=== PATIENT | female | born 2000 | race Caucasian/White ===

== ENCOUNTER 2024-11-10 11:09 | Emergency (ER) | payer OTHER, SELFPAY | END 2024-11-10 14:00 | disposition left against medical advice (07) | PROVIDERS: Emergency Provider Emergency Medicine | DX: R19.7 Diarrhea, unspecified (principal); R11.10 Vomiting, unspecified; Z53.21 Procedure and treatment not carried out due to patient leaving prior to being seen by health care provider ==

== ENCOUNTER 2025-02-23 13:41 | Outpatient (AMB) | payer OTHER, SELFPAY ==
--- NOTE | 2025-02-23 13:58 | MHC.PC.OV ---
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 Patient was seen at [facility] last Thursday for a 2nd degree sunburn. Patient need a note to say she is cleared to go back to work. Allergies Fruits with pits Allergy (Uncoded 02/23/25 14:01) Anaphylaxis Medication List - Last Reconciled 02/24/25 by GERMAN Wilson cyclobenzaprine 5 mg PO BEDTIME PRN epinephrine IM PRN hydroxyzine HCl 25 mg PO BEDTIME PRN ibuprofen-diphenhydramine cit 200-38 mg (Advil PM) 2 caps PO BEDTIME Tobacco use date assessed: 02/23/25 Dental Screening Dental Screen Date: 02/23/25 Did you have a dental visit in the last 12 months?: No Did you have a dental problem in the last 6 months where you did not have access to dental care?: No Was dental information given to patient?: Yes HPI HPI Comments History of Present Illness Details This is a 24-year-old female with a past medical history of anaphylaxis and obesity presenting to establish care. She would like a physical exam. The patient took a trip to [place], and she was in the sun, and she did not reply sunscreen. She developed a blistering sunburn on her chest and arms and neck on 02/13/2025. She had bandages placed on her an urgent care in [place]. She returned to [facility] in went to [facility] where they removed the bandages. The skin opened up. She was placed on oral antibiotics, naproxen and oxycodone. She is still taking Keflex and has a few days left. She is no longer on pain meds. She is doing much better. Her skin is very dry and the sunburn is peeling, but the wounds have significantly improved. No fevers or chills. The pain has pretty much subsided, and she needs a note to clear her to return to work next week. 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 She is applying emollients to her skin. She endorses back pain since she was an adolescent. She was seen at [facility] years ago in Pediatrics. Since 2019 her back pain has been worsening. It occurs with sitting, standing and lying down. It is across her entire lower back and radiates down the entire right leg associated with tingling which comes and goes. No history of back injuries. She tried the chiropractor for a month and water therapy. She has not had recent imaging. Endorses muscle spasms. She is up-to-date with flu, COVID and Tdap vaccine for her job. Patient needs referral to Gynecology. She has an IUD, and she is unsure if it is due to be changed. Patient says last year she ate a plum and a peach and developed throat swelling and difficulty breathing. She has been told to avoid all pitted fruits, and she needs to see Allergy and immunology because she did not have insurance last year for a referral. She carries an EpiPen and Benadryl. Endorses mild seasonal allergies. Since that time she has had peach juice and drinks with plum juice in them, and she has not had a reaction. She also endorses difficulty with sleep. She avoids caffeine. She does not watch TV before bedtime. She tries to use white noise and meditation apps. She has exhausted [id number]-[id number] sleep aids. She does have a history of anxiety. ROS: Constitutional: No unexplained weight loss, fever, chills, fatigue or night sweats. Eyes: No vision changes, blurry vision, double vision, eye pain, eye redness, eye discharge. ENT: No hearing loss, sneezing, congestion, runny nose or sore throat. Respiratory: No shortness of breath, cough or sputum production. Cardiovascular: No chest pain, chest pressure or chest discomfort. No palpitations or pedal edema. Gastrointestinal: No anorexia, nausea, vomiting or diarrhea. No abdominal pain or blood in stool. Genitourinary: No dysuria, hematuria, urinary frequency. Neurologic: No headache, dizziness, syncope, unilateral weakness, ataxia, numbness or tingling in the extremities. Musculoskeletal: See HPI Hematologic/Lymphatics: No bleeding or bruising. No painful lymph nodes. Skin: see HPI Endocrine: No cold or heat intolerance. No polyuria or polydipsia. Psychiatric: No depression. No SI/HI. Physical exam: Constitutional: Alert, in no distress. Head: Normocephalic. Eyes: Pupils are equal, round and reactive to light. Extraocular muscles intact. Ear, Nose and Throat: Canals clear. TMs normal. Normal nasal mucosa. No nasal discharge. No oral lesions. Neck: Supple, Full range of motion. No lymphadenopathy. No palpable thyroid masses. Respiratory: Clear to auscultation. Cardiovascular: S1 S2 regular. No murmurs. Gastrointestinal: Abdomen soft, non-tender, non-distended. Normal bowel sounds. No palpable masses. Neurologic: No focal neurological deficits. Symmetric patellar reflexes. Moves all extremities spontaneously. Sensation intact bilaterally. No footdrop. Normal gait. Skin: Desquamation of the skin on the upper arms and chest. There are healing scabs on the chest bilaterally. There is no warmth, edema, weeping. Musculoskeletal: No gross deformities. Normal range of motion. Patient has back pain with left straight leg raise. No midline spinal tenderness. Full range of motion of the spine. Extremities: Warm and well perfused. No clubbing, cyanosis or edema. 3+ peripheral pulses bilaterally. 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 Routine physical examination Screening for cardiovascular condition Low back pain radiating to right leg Family History (Updated 02/23/25 @ 14:08 by Trixie Sloan MA) Maternal Grandfather Hypertension Diabetes Maternal Grandmother Hypertension Hyperlipemia Mother Thyroid disease Father Alcoholism FHx: mental illness Substance abuse Paternal Uncle FHx: mental illness Social History (Updated 02/23/25 @ 14:09 by Trixie Sloan MA) Housing: Apartment Alcohol intake: current Patient Tobacco Use Status: Never used Tobacco e-Cigarette/Vaping Use: Never Used Second Hand Smoke Exposure: No Substance Use Type: Marijuana service: No Current occupational status: employed Current occupation: [employer] Current occupational exposures/hazards: No Cognitive needs: No Hearing needs: No Vision needs: No Questionnaire PHQ-9 Over the last 2 weeks, how often have you been bothered by any of the following problems? 1. Little interest or pleasure in doing things: several days 2. Feeling down, depressed, or hopeless: several days 3. Trouble falling or staying asleep, or sleeping too much: nearly every day 4. Feeling tired or having little energy: several days 5. Poor appetite or overeating: not at all 6. Feeling bad about yourself - or that you are a failure or have let yourself or your family down: several days 7. Trouble concentrating on things, such as reading the newspaper or watching television: not at all 8. Moving or speaking so slowly that other people could have noticed. Or the opposite - being so fidgety or restless that you have been moving around a lot more than usual: not at all 9. Thoughts that you would be better off or of hurting yourself in some way: not at all Total score: 7 Depression Screening Interpretation: Positive Depression Screening Follow-up: Other (see hpi) Depression Screening Done: Yes 71665 - PHQ-9 Billing: Patient declined-do not bill Source: Developed by Drs. Cal Lopez, Pat Ruff, Ryan Watson and colleagues, with an educational leora from [employer]. Thrive Questionnaire Date Thrive assessed: 02/23/25 I am a: Patient What is your living situation today?: I have a steady place to live Within the past 12 months, did the food you bought not last and you didn't have the money to get more?: Never true Within the past 12 months, did you worry whether your food would run out before you got money to buy more?: Never true Do you have trouble paying for medicines?: No Do you have trouble getting transportation to medical appointments?: No Do you have trouble paying your heating and electricity bill?: No Do you have trouble taking care of your child, family member or friend?: No Do you have trouble with day-to-day activities such as bathing, preparing meals, shopping, managing finances, etc.?: No Are you currently unemployed and looking for a job?: No Are you interested in more education?: Yes Please select the resources that you would like help with: Education Currently or been in a relationship where the following occur: No concerns reported THRIVE Score: 0 AUDIT C Alcohol Use Questionnaire (AUDIT-C) 1. How often do you have a drink containing alcohol?: Never Total Score: 0 Score Reviewed/Action Taken: No TAURUS-7 AMB Questionnaire TAURUS-7 Date TAURUS - 7 assessed: 02/23/25 Feeling nervous, anxious, or on edge: 1 = Several days Not being able to stop or control worryin = More than half the days Worrying too much about different things: 2 = More than half the days Trouble relaxin = More than half the days Being so restless that it is hard to sit still: 1 = Several days Becoming easily annoyed or irritable: 2 = More than half the days Feeling afraid as if something awful might happen: 2 = More than half the days Total TAURUS-7 score (0-4 normal; 5-9 mild; 10-14 moderate; 15-21 severe): 12 Source: Developed by Drs. Cal Lopez, Pat Ruff, Ryan Watson and colleagues, with an educational leora from [employer]. TAURUS-7 Assessment Billing TAURUS-7 Assessment Tool: TAURUS-7 Assessment 04838 Physical exam (Primary Care) Vital Signs: Last Vital Signs Temp 97.8 F 02/23/25 14:09 Pulse 94 02/23/25 14:09 BP 100/68 02/23/25 14:09 Pulse Ox 98 02/23/25 14:09 Oxygen Delivery Method Room Air 02/23/25 14:09 BMI result Body Mass Index 42.2 Tobacco/Smoking Status: Tobacco use Status Tobacco use date assessed 02/23/25 02/23/25 14:14 Patient Tobacco Use Status Never used Tobacco 02/23/25 14:14 e-Cigarette/Vaping Use Never Used 02/23/25 14:14 PHQ-9: PHQ-9 Score PHQ-9: Total score 7 02/23/25 14:29 Depression Screening Interpretation: Positive Depression Screening Follow-up: Other (see hpi) Thrive Assessment: Date of Thrive Assessment Date Thrive assessed 02/23/25 02/23/25 14:00 Currently or been in a relationship where the following occur: No concerns reported Coding Level of Care Code New Pt Level 3 (52388) New Pt Prev Care 18-39yr(15505 Diagnoses Screening for cardiovascular condition Z13.6 Low back pain radiating to right leg M54.50; M79.604 Routine physical examination Z00.00 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 Plan to refer to physical therapy pending results. She will follow up in 8 weeks. If physical therapy does not help we will discuss advanced imaging and referral to physiatry. She can take zcxj-eum-hgxdqcr ibuprofen 600 mg every 6 hours as needed for pain or acetaminophen 500 to a 1000 mg every 8 hours as needed for pain. Trial of cyclobenzaprine 5 mg as needed at bedtime for muscle spasm. Do not drive or operate heavy machinery when taking this medication because it causes sedation and drowsiness. (3) Routine physical examination: Code(s): Z00.00 - Encounter for general adult medical examination without abnormal findings Category: Medical Plan: Patient is seen today for a routine physical. As part of this visit we reviewed the following issues, which are considered and essential part of preventative health in this age group: - Annual Supervisor Framing Mill exam - Blood pressure screening - Cholesterol screening - Osteoporosis prevention including calcium/vitamin D intake, weight bearing exercise & smoking cessation - Nutritional and exercise counseling - Counseling of injury prevention including fire prevention, smoke alarms and seat belt usage - Screening for depression - Prevention of and/or testing for infectious diseases - Education about skin cancer - Recommendations about immunizations - Recommendation of an eye exam - Screening for substance abuse (4) Anaphylaxis due to food: Code(s): T78.00XA - Anaphylactic reaction due to unspecified food, initial encounter Category: Medical Plan: Continue strict avoidance of pitted fruits. Suspect oral allergy syndrome versus true IgE mediated allergy since she can have the processed forms. Reviewed EpiPen instructions. She also carries Benadryl. Referred to Allergy and immunology. (5) Insomnia: Code(s): G47.00 - Insomnia, unspecified Category: Medical Plan: Sleep hygiene reviewed. Trial of hydroxyzine 25 mg at bedtime as needed. (6) Sunburn of second degree: Code(s): L55.1 - Sunburn of second degree Category: Medical Plan: Continue to apply daily emollient. Sunburn prevention reviewed. Note provided to return to work. Plan Follow up in 8 weeks. Orders: Orders XR lumbar spine 2-3V 02/23/25 M54.50 - Low back pain, unspecified, M79.604 - Pain in right leg Syphilis Screen 02/23/25 M54.50 - Low back pain, unspecified, M79.604 - Pain in right leg, Z00.00 - Encounter for general adult medical examination without abnormal findings, Z13.6 - Encounter for screening for cardiovascular disorders, Z20.2 - Contact with and (suspected) exposure to infections with a predominantly sexual mode of transmission CT NG by PCR 02/23/25 M54.50 - Low back pain, unspecified, M79.604 - Pain in right leg, Z00.00 - Encounter for general adult medical examination without abnormal findings, Z13.6 - Encounter for screening for cardiovascular disorders, Z20.2 - Contact with and (suspected) exposure to infections with a predominantly sexual mode of transmission Hepatitis C Antibody 02/23/25 M54.50 - Low back pain, unspecified, M79.604 - Pain in right leg, Z00.00 - Encounter for general adult medical examination without abnormal findings, Z13.6 - Encounter for screening for cardiovascular disorders, Z20.2 - Contact with and (suspected) exposure to infections with a predominantly sexual mode of transmission TSH reflex Free T4 02/23/25 M54.50 - Low back pain, unspecified, M79.604 - Pain in right leg, Z00.00 - Encounter for general adult medical examination without abnormal findings, Z13.6 - Encounter for screening for cardiovascular disorders Complete Blood Count no Diff 02/23/25 M54.50 - Low back pain, unspecified, M79.604 - Pain in right leg, Z00.00 - Encounter for general adult medical examination without abnormal findings, Z13.6 - Encounter for screening for cardiovascular disorders PT Evaluation and Treatment 02/23/25 M54.50 - Low back pain, unspecified, M79.604 - Pain in right leg HIV Ab/Ag 02/23/25 M54.50 - Low back pain, unspecified, M79.604 - Pain in right leg, Z00.00 - Encounter for general adult medical examination without abnormal findings, Z13.6 - Encounter for screening for cardiovascular disorders, Z20.2 - Contact with and (suspected) exposure to infections with a predominantly sexual mode of transmission Lipid Panel 02/23/25 E78.5 - Hyperlipidemia, unspecified, M54.50 - Low back pain, unspecified, M79.604 - Pain in right leg, Z00.00 - Encounter for general adult medical examination without abnormal findings, Z13.6 - Encounter for screening for cardiovascular disorders Comprehensive Met. 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
[2025-02-23 14:09] VITALS: BP 100/68; PULSE 94; TEMP 36.6; O2SAT 98; BMI 42.2
--- OUTSIDE RECORDS SUMMARY | 2025-02-23 14:41 | XMS_ITS | Clinical Summary ---
Author Organization [facility] Address [address] [place] [address] Phone Care Team Providers Care Distributed Energy Systems Consultant Name Role Phone Ann Mosley MD Primary Care Provider Allergies Active Allergy Reactions Criticality Noted Date Comments [place] Anaphylaxis High 10/11/2024 [place] Anaphylaxis High 10/11/2024 Medications ondansetron ODT (ZOFRAN-ODT) 4 mg disintegrating tablet Let 1 tablet dissolve under the tongue three times daily as needed for nausea or vomiting. 10 tablet 4 Active naproxen (NAPROSYN) 500 mg tablet Take 1 tablet (500 mg total) by mouth 2 (two) times a day with meals for 15 days. 30 tablet 5 03/01/20 25 Active cephalexin (KEFLEX) 500 mg capsule Take 1 capsule (500 mg total) by mouth 3 (three) times a day for 10 days. 30 each 5 02/25/20 25 Active oxyCODONE (ROXICODONE) 5 mg immediate release tablet Take 1 tablet (5 mg total) by mouth at bedtime for 5 doses. Max Daily Amount: 5 mg 5 tablet 5 02/20/20 25 Encounters Date Type Department Care Team Description 02/14/2025 10:27 AM EDT - 02/14/2025 11:50 AM EDT Emergency [facility] Emergency [address] [place] [address] Sunburn (Primary Dx) Discharge Disposition: Home or Self Care from Last 3 Months Medical History Medical History Date Comments Anxiety Migraines Social History Tobacco Use Types Packs/Day Years Used Date Smoking Tobacco: Never Assessed Comments Unknown Sex and Gender Information Value Date Recorded Sex Assigned at Female 02/14/2025 10:36 AM EDT Legal Sex Female 10:11 AM EST Gender Identity Female 02/14/2025 10:36 AM EDT Sexual Orientation Straight 02/14/2025 10 :36 AM EDT Travel History Travel Start Travel End [place] 02/09/2025 02/13/2025 Obstetrics History Last Filed Vital Signs Vital Sign Reading Time Taken Comments Blood Pressure 122/95 02/14/2025 9:30 AM EDT Pulse 109 02/14/2025 9:30 AM EDT Temperature 36 ??C (96.8 ??F) 02/14/2025 9:30 AM EDT Respiratory Rate 20 02/14/2025 9:30 AM EDT Oxygen Saturation 98% 02/14/2025 9:30 AM EDT Inhaled Oxygen Concentration - - Weight 90.7 kg (200 lb) 02/14/2025 9:30 AM EDT Height 152.4 cm (5') 02/14/2025 9:30 AM EDT Body Mass Index 39.06 02/14/2025 9:30 AM EDT Plan of Treatment Health Maintenance Due Date Last Done Comments Gonorrhea/Chlamydia Screening 2001 Meningococcal B Vaccine (2 of 2 - [place] SCDM 2-dose series) 10/11/2019 04/11/2019 Depression Screening 09/16/2022 HIV Screening 09/16/2022 Hepatitis C Screening 09/16/2022 Social Influencers of Health Screening 09/16/2022 Cervical Cancer Screening: Pap Smear 2022 COVID-19 Vaccine ( season) 2024 11/05/2021, 03/07/2021, 02/07/2021 DTaP,Tdap,and Td Vaccines (9 - Td or Tdap) 01/02/2035 01/02/2025, 04/11/2019, 10/14/2013, Additional history exists HIB Vaccines Completed 01/04/2003, 06/20, 05/13/2002, Additional history exists Pneumococcal Vaccine: Pediatrics (0 to 5 Years) and At-Risk Patients (6 to 64 Years) Completed 01/04/2003, 07/15/2002, 05/13/2002, Additional history exists IPV Vaccines Completed 01/27/2006, 03/19, 05/13/2002, Additional history exists Varicella Vaccines Completed 02/23/2008, 01/04/2003 HPV Vaccines Completed 07/12/2015, 10/14/2013 Hepatitis A Vaccines Completed 07/12/2015, 10/14/20 Meningococcal ACWY Vaccine Completed 04/11/2019, Influenza Vaccine Completed 08/01/2024, , 08/08/2021, Additional history exists Hepatitis B Vaccines Completed 01/09/2025, 07/15/2002, 02/15/2002, Additional history exists MMR Vaccines Completed 01/29/2025, 12/17, 01/27/2006, Additional history exists RSV Immunization Patients Under 20 months Aged Out No longer eligible based on patient's age to complete this topic Insurance [facility] [employer] Care Teams Distributed Energy Systems Consultant Relationship Specialty Start Date End Date Ann Mosley MD [address] [place] [id number] PCP - General Pediatrics 02/14/25
== END 2025-02-23 14:50 | disposition home or self-care (01) ==
LOC: HO.HMCFM 13:42
PROVIDERS: Visit Provider Physician Assistant Medical
DX: Z00.00 Encounter for general adult medical examination without abnormal findings (principal); M54.50 Low back pain, unspecified; M79.604 Pain in right leg; Z13.6 Encounter for screening for cardiovascular disorders; T78.00XA Anaphylactic reaction due to unspecified food, initial encounter; G47.00 Insomnia, unspecified; L55.1 Sunburn of second degree

== ENCOUNTER → 2025-02-23 13:41 | Outpatient (BNVA) | payer OTHER, SELFPAY | PROVIDERS: Visit Provider Physician Assistant Medical | DX: Z00.00 Encounter for general adult medical examination without abnormal findings (principal); E66.9 Obesity, unspecified; M54.50 Low back pain, unspecified; M79.604 Pain in right leg; G47.00 Insomnia, unspecified; L55.1 Sunburn of second degree; T78.00XA Anaphylactic reaction due to unspecified food, initial encounter; X58.XXXA Exposure to other specified factors, initial encounter; Y93.9 Activity, unspecified; Y92.9 Unspecified place or not applicable; Y99.9 Unspecified external cause status; Z68.41 Body mass index [BMI] 40.0-44.9, adult | CPT/HCPCS: 96127; 99202; 99385 ==

== ENCOUNTER 2025-04-17 11:36 | Outpatient (REF) | payer OTHER, SELFPAY ==
--- NOTE | ~2025-04-17 | XR_ITS ---
EXAMINATION: XR LUMBOSACRAL SPINE CLINICAL INFORMATION: M54.50 - Low back pain, unspecified COMPARISON: None available. TECHNIQUE: AP and lateral views FINDINGS: No acute cortical disruption or malalignment. No lytic or blastic lesions. Rudimentary ribs at T12. XR/XR lumbar spine 2-3V IMPRESSION: No acute fracture or listhesis. Negative x-ray. Electronically signed by: Francesco Liz MD 04/17/2025 12:42 PM EDT
[2025-04-17 12:21] LABS: Hematocrit 38.5 % (37.0-47.0); Hemoglobin 12.9 g/dl (12.0-16.0); Mean Corpuscular HGB Conc 33.5 g/dl (31.0-35.0); Mean Corpuscular Hemoglobin 29.1 pg (27.0-33.0); Mean Corpuscular Volume 86.9 fL (80.0-98.0); Mean Platelet Volume 9.7 fL (9.4-12.3); Platelet Count 224 X10*3/uL (160-400); Red Blood Count 4.43 X10*6/uL (4.20-5.50); Red Cell Distribution Width 12.2 % (11.0-16.0); White Blood Count 4.9 X10*3/uL (4.8-10.8)
--- OUTSIDE RECORDS SUMMARY | 2025-04-17 12:29 | XMS_ITS | Clinical Summary ---
Author Organization [facility] Address [address] [place] [address] Phone Care Team Providers Care Cut Out Stitcher Name Role Phone Ann Mosley MD Primary Care Provider Allergies Active Allergy Reactions Criticality Noted Date Comments [place] Anaphylaxis High 10/11/2024 [place] Anaphylaxis High 10/11/2024 Medications ondansetron ODT (ZOFRAN-ODT) 4 mg disintegrating tablet Let 1 tablet dissolve under the tongue three times daily as needed for nausea or vomiting. 10 tablet Active Encounters Date Type Department Care Team Description 02/14/2025 10:27 AM EDT - 02/14/2025 11:[address] [facility] Emergency [address] [place] [id number] Sunburn (Primary Dx) Discharge Disposition: Home [...] Orientation Straight 02/14/2025 10 :36 AM EDT Obstetrics History Last Filed Vital Signs Vital Sign Reading Time Taken Comments Blood Pressure 122/95 02/14/2025 9:30 AM EDT Pulse 109 02/14/2025 9:30 AM EDT Temperature 36 C (96.8 F) 02/14/2025 9:30 AM EDT Respiratory Rate 20 [...] 10/14/2013 Hepatitis A Vaccines Completed 07/12/2015, 10/14/20 13 Meningococcal ACWY Vaccine Completed 04/11/2019, Influenza Vaccine Completed 08/01/2024, , 08/08/2021, Additional history exists Hepatitis B Vaccines Completed 01/09/2025, 07/15/2002, 02/15/2002, Additional history exists MMR Vaccines Completed 01/29/2025, 12/17, 01/27/2006, Additional history exists RSV Immunization Patients Under 20 months Aged Out No longer eligible based on patient's age to complete this topic Insurance [facility] Care Teams Cut Out Stitcher Relationship Specialty Start Date End Date Ann Mosley MD [address] [place] [address] PCP - General Pediatrics 02/14/25
[2025-04-17 12:55] LABS: Alanine Aminotransferase 48 U/L (0-31); Albumin Level 4.1 g/dL (3.5-5.0); Alkaline Phosphatase 72 U/L (39-117); Anion Gap 11 (12-20); Aspartate Amino Transferase 39 U/L (5-31); Bilirubin Total 0.3 mg/dL (0.0-1.0); Blood Urea Nitrogen 9 mg/dL (9-16); Calcium 8.9 mg/dL (8.4-10.2); Carbon Dioxide 25 mmol/L (22-29); Chloride 107 mmol/L (96-108); Cholesterol 163 mg/dL (<200); Estimated Glomerular Filt Rate > 60; Glucose Random 87 mg/dL (60-115); HDL Cholesterol 34 mg/dL (>40); LDL Cholesterol Calculated 103 mg/dL (<100); Potassium 4.2 mmol/L (3.3-5.1); Sodium 139 mmol/L (135-145); Total Protein 7.2 g/dL (6.5-8.0); Triglycerides 132 mg/dL (<150)
[2025-04-17 13:04] LABS: Syphilis Screen Nonreactive (Nonreactive)
[2025-04-17 13:06] LABS: HIV AB/AG Nonreactive (Nonreactive); HIV Num 1 0.76 S/CO (0.00-0.99); ~HepC Num1 0.24 S/CO (0.00-0.79); ~Hepatitis C Antibody Nonreactive (Nonreactive)
[2025-04-17 13:09] LABS: TSH reflex Free T4 1.04 uIU/mL (0.32-4.0)
== END 2025-04-17 11:37 | disposition home or self-care (01) ==
LOC: HO.XRAY 11:36
PROVIDERS: PCP Physician Assistant Medical; Visit Provider Physician Assistant Medical
DX: M54.50 Low back pain, unspecified (principal); M79.604 Pain in right leg; Z20.2 Contact with and (suspected) exposure to infections with a predominantly sexual mode of transmission; E78.5 Hyperlipidemia, unspecified; Z13.6 Encounter for screening for cardiovascular disorders; Z00.00 Encounter for general adult medical examination without abnormal findings
CPT/HCPCS: 36415; 72100; 80053; 80061; 84443; 85027; 86780; 86803; 87389

== ENCOUNTER → 2025-04-17 12:04 | Outpatient (BNV) | payer OTHER, SELFPAY | PROVIDERS: PCP Physician Assistant Medical; Visit Provider Radiology Diagnostic Radiology | DX: M54.50 Low back pain, unspecified (principal) | CPT/HCPCS: 72100 ==

== ENCOUNTER 2025-05-01 10:34 | Outpatient (AMB) | payer OTHER, SELFPAY ==
--- NOTE | 2025-05-01 10:46 | MHC.PC.OV ---
Vital Signs 05/01/25 10:50 Height 5 ft Weight 217 lb BMI 42.4 BP 100/70 Blood Pressure Location Rt brachial Position Sitting Pulse 99 Pulse Source Pulse Oximeter Temp 79.9 F L Temp Source Temporal Artery Scan Pulse Oximetry (%) 98 Oxygen Delivery Method Room Air Intake Visit Reasons: follow up Intake Note: Graciela presents in the office today for a follow up to her labs and medication Allergies Fruits with pits Allergy (Uncoded 05/01/25 10:48) Anaphylaxis Tobacco use date assessed: 05/01/25 Dental Screening Dental Screen Date: 05/01/25 Did you have a dental visit in the last 12 months?: No Did you have a dental problem in the last 6 months where you did not have access to dental care?: No Was dental information given to patient?: Patient declined HPI HPI Comments History of Present Illness Details This is a 24-year-old female with a past medical history of anaphylaxis and obesity presenting for chronic back pain. When I saw her for initial evaluation on 02/23/2025 she endorsed back pain since adolescence. She was seen at [facility] years ago in Pediatrics. Since 2019 her back pain has been worsening. It is worse with sitting and standing. The pain is in her thoracic and lower back and radiates down the entire right leg with tingling that comes and goes in the right leg. She reported seeing a chiropractor for a month and water therapy which were ineffective. She endorsed muscle spasms. She was prescribed a trial of cyclobenzaprine, and it has provided only minimal relief. She had an x-ray of her lower back completed on 04/17/2025 which was normal. She has done 8 weeks of physical therapy since I saw her with no improvement in her symptoms. Average pain continues to be an 8/10. Her liver enzymes were elevated on routine blood work. She has instructions to repeat them in a month, and we will also check for hepatitis a, B and C infection. She denies abdominal pain, nausea, vomiting, jaundice or unexplained weight loss. She reports that 50 mg of hydroxyzine years effective for insomnia. ROS: Constitutional: No unexplained weight loss, fever, chills, fatigue or night sweats. Eyes: No vision changes, blurry vision, double vision, eye pain, eye redness, eye discharge. ENT: No hearing loss, sneezing, congestion, runny nose or sore throat. Respiratory: No shortness of breath, cough or sputum production. Cardiovascular: No chest pain, chest pressure or chest discomfort. No palpitations or pedal edema. Gastrointestinal: No anorexia, nausea, vomiting or diarrhea. No abdominal pain or blood in stool. Genitourinary: No dysuria, hematuria, urinary frequency. Neurologic: No headache, dizziness, syncope, unilateral weakness, ataxia, numbness or tingling in the extremities. Musculoskeletal: See HPI Hematologic/Lymphatics: No bleeding or bruising. No painful lymph nodes. Skin: see HPI Endocrine: No cold or heat intolerance. No polyuria or polydipsia. Psychiatric: No depression. No SI/HI. Physical exam: Constitutional: Alert, in no distress. Respiratory: Clear to auscultation. Cardiovascular: S1 S2 regular. No murmurs. Neurologic: Symmetric patellar reflexes. Moves all extremities spontaneously. Sensation intact bilaterally. No footdrop. Normal gait. Musculoskeletal: Decreased lumbar extension. She has pain with lumbar flexion and extension. She has thoracic and lumbar midline spinal tenderness. Right leg strength is 4/5, left leg strength is 5/5. Negative straight leg raises Extremities: Warm and well perfused. No clubbing, cyanosis or edema. [facility] Medical History (Updated 05/01/25 @ 11:31 by GERMAN Wilson) Back pain Elevated LFTs Sunburn of second degree Insomnia Anaphylaxis due to food Routine physical examination Screening for cardiovascular condition Low back pain radiating to right leg Family History Maternal Grandfather Hypertension Diabetes Maternal Grandmother Hypertension Hyperlipemia Mother Thyroid disease Father Alcoholism FHx: mental illness Substance abuse Paternal Uncle FHx: mental illness Social History Housing: Apartment Alcohol intake: current Patient Tobacco Use Status: Never used Tobacco e-Cigarette/Vaping Use: Never Used Second Hand Smoke Exposure: No Substance Use Type: Marijuana service: No Current occupational status: employed Current occupation: [employer] Current occupational exposures/hazards: No Cognitive needs: No Hearing needs: No Vision needs: No Questionnaire Thrive Questionnaire Date Thrive assessed: 02/23/25 I am a: Patient What is your living situation today?: I have a steady place to live Within the past 12 months, did the food you bought not last and you didn't have the money to get more?: Never true Within the past 12 months, did you worry whether your food would run out before you got money to buy more?: Never true Do you have trouble paying for medicines?: No Do you have trouble getting transportation to medical appointments?: No Do you have trouble paying your heating and electricity bill?: No Do you have trouble taking care of your child, family member or friend?: No Do you have trouble with day-to-day activities such as bathing, preparing meals, shopping, managing finances, etc.?: No Are you currently unemployed and looking for a job?: No Are you interested in more education?: Yes Please select the resources that you would like help with: Education Currently or been in a relationship where the following occur: No concerns reported THRIVE Score: 0 AUDIT C Alcohol Use Questionnaire (AUDIT-C) 3. How often do you have six or more drinks on one occasion?: Never Total Score: 0 TAURUS-7 AMB Questionnaire TAURUS-7 Date TAURUS - 7 assessed: 02/23/25 Source: Developed by Drs. Cal Lopez, Pat Ruff, Ryan Watson and colleagues, with an educational leora from [employer]. Physical exam (Primary Care) Vital Signs: Last Vital Signs Temp 79.9 F L 05/01/25 10:50 Pulse 99 05/01/25 10:50 BP 100/70 05/01/25 10:50 Pulse Ox 98 05/01/25 10:50 Oxygen Delivery Method Room Air 05/01/25 10:50 BMI result Body Mass Index 42.4 Tobacco/Smoking Status: Tobacco use Status Tobacco use date assessed 05/01/25 05/01/25 10:52 Patient Tobacco Use Status Never used Tobacco 05/01/25 10:49 e-Cigarette/Vaping Use Never Used 05/01/25 10:49 Thrive Assessment: Date of Thrive Assessment Date Thrive assessed 02/23/25 05/01/25 10:46 Currently or been in a relationship where the following occur: No concerns reported Coding Level of Care Code Est Pt Level 4 (94260) Complex EM visit Add On G2211 Diagnoses Chronic midline thoracic back pain M54.6; G89.29 Back pain location: thoracic back pain Back pain laterality: midline Chronicity: chronic Elevated LFTs R79.89 Insomnia G47.00 Assessment & Plan Assessment & Plan (1) Back pain: Code(s): M54.9 - Dorsalgia, unspecified Category: Medical Qualifiers: Back pain location: thoracic back pain Back pain laterality: midline Chronicity: chronic Qualified Code(s): M54.6 - Pain in thoracic spine; G89.29 - Other chronic pain (2) Elevated LFTs: Code(s): R79.89 - Other specified abnormal findings of blood chemistry Category: Medical (3) Insomnia: Code(s): G47.00 - Insomnia, unspecified Category: Medical Plan: Reviewed sleep hygiene. She can continue hydroxyzine 50 mg at bedtime as needed. Plan The patient has continued thoracic and lumbar back pain with radiation down the right leg and intermittent paresthesias and weakness of the right leg. She has failed more than 6 weeks of conservative therapy. MRI of the thoracic and lumbar spine ordered for further evaluation. Continue Flexeril 5 mg nightly as needed for muscle spasm. Do not drive or operate heavy machinery with this medication. Advised not to take hydroxyzine with Flexeril. Trial of gabapentin 300 mg up to 3 times a day as needed for pain. Advised it can cause sedation and dizziness and not to drive or operate heavy machinery with the medicine. Advised not to take hydroxyzine with the gabapentin. She will return in May to repeat LFTs and have testing done for hepatitis a, B and C. If LFTs remain elevated I will order a liver ultrasound. Follow up to be determined based on results. Schedule physical in February 2026. Orders: Orders MR lumbar spine wo con Today M54.50 - Low back pain, unspecified, M79.604 - Pain in right leg MR thoracic spine wo con Today M54.9 - Dorsalgia, unspecified Medications: New gabapentin 300 mg PO TID PRN 60 caps 0RF pain hydroxyzine HCl 50 mg PO BEDTIME PRN 90 tabs 0RF sleep Discontinued hydroxyzine HCl Discontinued Reason: Doctor's Order 25 mg PO BEDTIME PRN 30 tabs 0RF for insomnia
[2025-05-01 10:50] VITALS: BP 100/70; PULSE 99; TEMP 26.6; O2SAT 98; BMI 42.4
--- OUTSIDE RECORDS SUMMARY | 2025-05-01 11:25 | XMS_ITS | Clinical Summary ---
Author Organization [facility] Address [address] [place] [address] Phone Care Team Providers Care Banana Ripening Room Supervisor Name Role Phone Ann Mosley MD Primary Care Provider Allergies Active Allergy Reactions Criticality Noted Date Comments [place] Anaphylaxis High 10/11/2024 [place] Anaphylaxis High 10/11/2024 Medications ondansetron ODT (ZOFRAN-ODT) 4 mg disintegrating tablet Let 1 tablet dissolve under the tongue three times daily as needed for nausea or vomiting. 10 tablet Active Encounters Date Type Department Care Team Description 02/14/2025 10:27 AM EDT - 02/14/2025 11:50 AM EDT Emergency [facility] Emergency [address] [place] [id number] Sunburn (Primary Dx) Discharge Disposition: Home [...] Vaccine ( season) 2024 11/05/2021, 03/07/2021, 02/07/2021 Influenza Vaccine (#1) 2025 , 10/09/2022, 08/08/2021, Additional history exists DTaP,Tdap,and Td Vaccines (9 - Td or Tdap) 01/02/2035 01/02/2025, 04/11/2019, 10/14/2013, Additional history exists HIB Vaccines Completed 01/04/2003, 06/20, 05/13/2002, Additional history exists Pneumococcal Vaccine: Pediatrics (0 to 5 Years) and At-Risk Patients (6 to 49 Years) Completed 01/04/2003, 07/15/2002, 05/13/2002, Additional history exists IPV Vaccines Completed 01/27/2006, 03/19, 05/13/2002, Additional history exists Varicella Vaccines Completed 02/23/2008, 01/04/2003 HPV Vaccines Completed 07/12/2015, 10/14/2013 Hepatitis A Vaccines Completed 07/12/2015, 10/14/20 13 Meningococcal ACWY Vaccine Completed 04/11/2019, Hepatitis B Vaccines Completed 01/09/2025, 07/15/2002, 02/15/2002, Additional history exists MMR Vaccines Completed 01/29/2025, 12/17, 01/27/2006, Additional history exists RSV Immunization Patients Under 20 months Aged Out No longer eligible based on patient's age to complete this topic Insurance [facility] Care Teams Banana Ripening Room Supervisor Relationship Specialty Start Date End Date Ann Mosley MD [address] [place] [id number] PCP - General Pediatrics 02/14/25
== END 2025-05-01 11:25 | disposition home or self-care (01) ==
LOC: HO.HMCFM 10:35
PROVIDERS: PCP Physician Assistant Medical; Visit Provider Physician Assistant Medical
DX: M54.6 Pain in thoracic spine (principal); G89.29 Other chronic pain; R79.89 Other specified abnormal findings of blood chemistry; G47.00 Insomnia, unspecified

== ENCOUNTER → 2025-05-01 10:34 | Outpatient (BNVA) | payer OTHER, SELFPAY | PROVIDERS: PCP Physician Assistant Medical; Visit Provider Physician Assistant Medical | DX: M54.6 Pain in thoracic spine (principal); G89.29 Other chronic pain; R79.89 Other specified abnormal findings of blood chemistry; G47.00 Insomnia, unspecified; M79.604 Pain in right leg | CPT/HCPCS: 99212 ==

== ENCOUNTER 2025-05-20 08:32 | Outpatient (REF) | payer OTHER, SELFPAY ==
--- NOTE | ~2025-05-20 | MR_ITS ---
CLINICAL HISTORY: M54.50 - Low back pain, unspecified Exam: MRI lumbar spine without IV contrast Comparison: CR/SR - XR LUMBAR SPINE 2-3 VIEWS - 04/17/25 12:16 EDT Findings: Lumbar spine alignment is normal. No acute fracture, osseous lesion or suspicious bone marrow signal. Conus medullaris terminates at L1, normal morphology. Paraspinal musculature, imaged abdominopelvic contents are unremarkable. T12-L1 to L5-S1: Normal disc. No central canal stenosis or foraminal narrowing. Unremarkable facets. Impression: Normal exam. This document has been electronically signed by: Dali Mccormick MD on 05/22/2025 16:22:39
--- NOTE | ~2025-05-20 | MR_ITS ---
CLINICAL HISTORY: M54.9 - Dorsalgia, unspecified Exam: MRI thoracic spine without IV contrast Comparison: None provided Findings: Thoracic spine alignment is normal. No acute fracture, osseous lesion or suspicious bone marrow signal. Small Schmorl's node T11 inferior endplate. Thoracic spinal cord is normal. Paraspinal musculature, included thoracic and abdominal contents are unremarkable. T1-2 to T11-12: Normal disc. No central canal stenosis or foraminal narrowing. Normal facets. Impression: T11 small Schmorl's node, otherwise normal. This document has been electronically signed by: Dali Mccormick MD on 05/22/2025 16:30:14
--- OUTSIDE RECORDS SUMMARY | 2025-05-20 08:36 | XMS_ITS | Clinical Summary ---
Author Organization [facility] Address [address] [place] [address] Phone Care Team Providers Care Venetian Blind Cleaner And Repairer Name Role Phone Ann Mosley MD Primary Care Provider Allergies Active Allergy Reactions Criticality Noted Date Comments [place] Anaphylaxis High 10/11/2024 [place] Anaphylaxis High 10/11/2024 Medications ondansetron ODT (ZOFRAN-ODT) 4 mg disintegrating tablet Let 1 tablet dissolve under the tongue three times daily as needed for nausea or vomiting. 10 tablet Active Medical History Medical History Date Comments Anxiety [...] - [place] SCDM 2-dose series) 10/11/2019 04/11/2019 HIV Screening 09/16/2022 Hepatitis C Screening 09/16/2022 Social Influencers of Health Screening 09/16/2022 Cervical Cancer Screening: Pap Smear 2022 COVID-19 Vaccine ( season) 2024 11/05/2021, 03/07/2021, 02/07/2021 Depression Screening 10/19/2024 Influenza Vaccine (#1) 2025 , 10/09/2022, 08/08/2021, [...] patient's age to complete this topic Insurance [facility] [employer] Care Teams Venetian Blind Cleaner And Repairer Relationship Specialty [place] [address] [place] [id number] PCP - General Pediatrics 02/14/25
[2025-05-20 10:30] LABS: Alanine Aminotransferase 23 U/L (0-31); Aspartate Amino Transferase 25 U/L (5-31)
[2025-05-20 10:53] LABS: Hepatitis A Antibody IgM 0.17 Index (0-0.79); ~Hepatitis A Antibody IgM Nonreactive (Nonreactive)
[2025-05-20 10:54] LABS: HBc Num1 0.11 S/CO (0.00-0.79)
== END 2025-05-20 08:33 | disposition home or self-care (01) ==
LOC: HO.MRI 08:32
PROVIDERS: PCP Physician Assistant Medical; Visit Provider Physician Assistant Medical
DX: M54.50 Low back pain, unspecified (principal); M79.604 Pain in right leg; R79.89 Other specified abnormal findings of blood chemistry; Z11.59 Encounter for screening for other viral diseases
CPT/HCPCS: 36415; 72146; 72148; 84450; 84460; 86704; 86709; 87350

== ENCOUNTER → 2025-05-20 08:39 | Outpatient (BNV) | payer OTHER, SELFPAY | PROVIDERS: PCP Physician Assistant Medical; Visit Provider Radiology Diagnostic Radiology | DX: M51.44 Schmorl's nodes, thoracic region (principal); M54.50 Low back pain, unspecified | CPT/HCPCS: 72146; 72148 ==